=== PATIENT | female | born 1990 | race Caucasian/White ===

== ENCOUNTER 2022-12-21 08:11 | Emergency (ER) | payer OTHER ==
[~2022-12-21] VITALS: Ht 152.4 cm; Wt 65.3 kg
[2022-12-21 09:51] LABS: HEMATOCRIT 38.3 % (36.0-45.00); HEMOGLOBIN 13.1 g/dL (12.0-15.00); MEAN CELL VOLUME 86.7 fL (80.00-100.00); MEAN CORPUSCULAR HEMOGLOBIN 29.8 pg (27.00-32.0); MEAN CORPUSCULAR HGB CONC 34.3 g/dl (32.0-36.0); PLATELET COUNT 199 K/uL (150-450); RED BLOOD COUNT 4.42 M/uL (4.00-6.00); RED CELL DISTRIBUTION WIDTH 14.3 % (11.5-14.5)
== END 2022-12-21 10:43 | disposition home or self-care (01) ==
LOC: ER 08:12
PROVIDERS: General Practice
DX: J10.1 Influenza due to other identified influenza virus with other respiratory manifestations (principal); Z20.822 Contact with and (suspected) exposure to COVID-19

== ENCOUNTER 2024-01-05 17:07 | Emergency (ER) | payer OTHER ==
[~2024-01-05] VITALS: Ht 152.4 cm; Wt 68.0 kg
[2024-01-05] MEDS ORDERED: FOLIC ACID0.8 M1 (17:12)
[2024-01-05] MEDS ORDERED: GENTAMICIN SULFATE 0.15 MG/DR DROPS 5ML OP STA (17:24)
== END 2024-01-05 20:50 | disposition home or self-care (01) ==
LOC: ER 17:08
DX: R53.81 Other malaise (principal); J06.9 Acute upper respiratory infection, unspecified; Z20.822 Contact with and (suspected) exposure to COVID-19

== ENCOUNTER 2024-02-05 16:24 | Emergency (ER) | payer OTHER ==
[~2024-02-05] VITALS: Ht 152.4 cm; Wt 69.4 kg
[~2024-02-05 16:24] MED LIST: FOLIC ACID0.8 M1
[2024-02-05] MEDS ORDERED: PRENATE DHA SO1 EAC1 PO (17:07)
[2024-02-05 17:36] LABS: HEMOGLOBIN 12.5 g/dL (12.0-15.00); MEAN CELL VOLUME 86.5 fL (80.00-100.00); MEAN CORPUSCULAR HEMOGLOBIN 29.3 pg (27.00-32.0); MEAN CORPUSCULAR HGB CONC 33.9 g/dl (32.0-36.0); PLATELET COUNT 216 K/uL (150-450); RED BLOOD COUNT 4.27 M/uL (4.00-6.00); RED CELL DISTRIBUTION WIDTH 15.1 % (11.5-14.5)
[2024-02-05 18:07] LABS: INR 0.98; PARTIAL THROMBOPLASTIN TIME 26.7 SECONDS (22.0-34.0); PROTHROMBIN TIME 10.7 SECONDS (9.0-11.5)
[2024-02-05 18:42] LABS: CALCIUM 8.8 mg/dL (8.5-10.1); CREATININE SERUM 0.72 mg/dL (0.55-1.02); GFR 92.72; POTASSIUM 4.04 mEq/L (3.5-5.1)
[2024-02-05 18:46] LABS: PH,URINE 5.5 (5.0-8.0); URINE APPEARANCE Clear; URINE BILIRRUBIN Negative (NEGATIVE); URINE BLOOD Moderate; URINE COLOR Yellow; URINE GLUCOSE Negative (NEGATIVE); URINE KETONE Negative (NEGATIVE); URINE LEUKOCYTE Moderate; URINE NITRATE Negative; URINE PROTEIN Negative (NEGATIVE); URINE UROBILINOGEN 0.2 E.U./dl
[2024-02-05 18:50] LABS: URINE BACTERIA 1578.6 uL (0.0-1933); URINE EPITHELIAL CELLS 30.4 uL (0.0-38.8); URINE RBC 7.4 uL (0.0-20.8)
[2024-02-05 19:01] LABS: URINE CAST 0.15 uL (0.0-1.40)
[2024-02-06 09:10] LABS: HEMATOCRIT 38.1 % (36.0-45.00); HEMOGLOBIN 12.8 g/dL (12.0-15.00); MEAN CELL VOLUME 86.9 fL (80.00-100.00); MEAN CORPUSCULAR HEMOGLOBIN 29.3 pg (27.00-32.0); MEAN CORPUSCULAR HGB CONC 33.7 g/dl (32.0-36.0); PLATELET COUNT 207 K/uL (150-450); RED BLOOD COUNT 4.38 M/uL (4.00-6.00); RED CELL DISTRIBUTION WIDTH 14.7 % (11.5-14.5)
== END 2024-02-06 10:02 | disposition home or self-care (01) ==
LOC: ER 16:26
PROVIDERS: General Practice
DX: O20.8 Other hemorrhage in early pregnancy (principal); Z3A.10 10 weeks gestation of pregnancy; Z91.040 Latex allergy status

== ENCOUNTER 2024-02-16 08:10 | Outpatient (CLI) | payer OTHER ==
[~2024-02-16 08:10] MED LIST changes: +PRENATE DHA SO1 EAC1 PO
== END 2024-02-16 08:11 | disposition home or self-care (01) ==
LOC: PRENATAL 08:10
PROVIDERS: ATTEND Obstetrics & Gynecology Maternal & Fetal Medicine
DX: O36.80X0 Pregnancy with inconclusive fetal viability, not applicable or unspecified (principal); Z36.82 Encounter for antenatal screening for nuchal translucency; Z14.8 Genetic carrier of other disease; O24.419 Gestational diabetes mellitus in pregnancy, unspecified control; Z3A.12 12 weeks gestation of pregnancy

== ENCOUNTER 2024-04-12 10:49 | Outpatient (CLI) | payer OTHER | END 2024-04-12 10:50 | disposition home or self-care (01) | LOC: PRENATAL 10:49 | PROVIDERS: ATTEND Obstetrics & Gynecology Maternal & Fetal Medicine | DX: O44.00 Complete placenta previa NOS or without hemorrhage, unspecified trimester (principal); O24.419 Gestational diabetes mellitus in pregnancy, unspecified control; O26.879 Cervical shortening, unspecified trimester; Z3A.21 21 weeks gestation of pregnancy ==

== ENCOUNTER 2024-04-26 08:17 | Outpatient (CLI) | payer OTHER | END 2024-04-26 08:18 | disposition home or self-care (01) | LOC: PRENATAL 08:17 | PROVIDERS: ATTEND Obstetrics & Gynecology Maternal & Fetal Medicine | DX: O26.879 Cervical shortening, unspecified trimester (principal); O09.219 Supervision of pregnancy with history of pre-term labor, unspecified trimester; Z3A.22 22 weeks gestation of pregnancy ==

== ENCOUNTER 2024-04-26 10:23 | Outpatient (CLI) | payer OTHER | END 2024-04-26 10:27 | disposition home or self-care (01) | LOC: LAB 10:23 | PROVIDERS: ATTEND Obstetrics & Gynecology Maternal & Fetal Medicine | DX: O26.879 Cervical shortening, unspecified trimester (principal); O09.219 Supervision of pregnancy with history of pre-term labor, unspecified trimester ==

== ENCOUNTER → 2024-05-10 13:19 | Outpatient (CLI) | payer OTHER ==
[~2024-05-10 13:19] MED LIST changes: +ZITHROMAX500 MG PO
== END | disposition home or self-care (01) ==
LOC: PRENATAL 13:19
PROVIDERS: ATTEND Obstetrics & Gynecology Maternal & Fetal Medicine
DX: O26.849 Uterine size-date discrepancy, unspecified trimester (principal); O36.8199 Decreased fetal movements, unspecified trimester, other fetus; O26.879 Cervical shortening, unspecified trimester; O24.419 Gestational diabetes mellitus in pregnancy, unspecified control; Z3A.25 25 weeks gestation of pregnancy

== ENCOUNTER 2024-05-10 15:11 | Outpatient (CLI) | payer OTHER | END 2024-05-10 15:13 | disposition home or self-care (01) | LOC: LAB 15:11 | PROVIDERS: ATTEND Obstetrics & Gynecology Maternal & Fetal Medicine | DX: O26.879 Cervical shortening, unspecified trimester (principal); O09.219 Supervision of pregnancy with history of pre-term labor, unspecified trimester ==

== ENCOUNTER 2024-06-05 10:23 | Outpatient (CLI) | payer OTHER ==
[~2024-06-05 10:23] MED LIST changes: +AZITHROMYCIN250 MG PO
== END 2024-06-05 10:27 | disposition home or self-care (01) ==
LOC: PRENATAL 10:23
PROVIDERS: ATTEND Obstetrics & Gynecology Maternal & Fetal Medicine
DX: O26.849 Uterine size-date discrepancy, unspecified trimester (principal); O36.8199 Decreased fetal movements, unspecified trimester, other fetus; O26.879 Cervical shortening, unspecified trimester; O24.419 Gestational diabetes mellitus in pregnancy, unspecified control; Z3A.29 29 weeks gestation of pregnancy

== ENCOUNTER 2024-07-04 10:09 | Outpatient (CLI) | payer OTHER ==
[~2024-07-04 10:09] MED LIST changes: +HUMULIN N100 UNIT/2 SUBCUTANEO; +INSULIN SYRING1 EA29 SUBCUTANEO
== END 2024-07-04 10:10 | disposition home or self-care (01) ==
LOC: PRENATAL 10:09
PROVIDERS: ATTEND Obstetrics & Gynecology Maternal & Fetal Medicine
DX: O26.849 Uterine size-date discrepancy, unspecified trimester (principal); O36.8199 Decreased fetal movements, unspecified trimester, other fetus; O26.879 Cervical shortening, unspecified trimester; O24.419 Gestational diabetes mellitus in pregnancy, unspecified control; Z3A.32 32 weeks gestation of pregnancy

== ENCOUNTER 2024-08-03 09:23 | Inpatient (IN) | payer OTHER ==
[2024-08-03] VITALS (7 sets, daily range): BP systolic 100–117; BP diastolic 49–74
[~2024-08-03] VITALS: Ht 152.4 cm; Wt 87.1 kg
[2024-08-03 11:54] LABS: BASO % 0.3 % (0.1-1.2); EOS # 0.06 (0.04-0.54); EOS % 0.7 % (0.7-7.0); HEMATOCRIT 38.1 % (34.1-44.9); HEMOGLOBIN 12.5 g/dL (11.2-15.7); LYMPH # 1.83 (1.18-3.74); LYMPH % 20.5 % (19.3-53.1); MEAN CORPUSCULAR HEMOGLOBIN 27.5 pg (25.6-32.2); MONO # 0.51 (0.24-0.82); MONO % 5.7 % (4.7-12.5); NEUT # 6.43 (1.56-6.13); NEUT % 72.1 % (34.0-71.1); PLATELET COUNT 207 K/uL (163-369); RED BLOOD COUNT 4.55 M/uL (3.93-5.22); RED CELL DISTRIBUTION WIDTH 15.9 % (11.6-14.4)
[2024-08-03 11:56] LABS: PH,URINE 5.5 (5.0-8.0); URINE APPEARANCE Turbid; URINE BILIRRUBIN Negative (NEGATIVE); URINE BLOOD Large; URINE COLOR Dark Yellow; URINE GLUCOSE Negative (NEGATIVE); URINE KETONE 15 (NEGATIVE); URINE LEUKOCYTE Large; URINE NITRATE Negative; URINE PROTEIN 30 (NEGATIVE); URINE UROBILINOGEN 0.2 E.U./dl
[2024-08-03 12:00] LABS: URINE CAST 4.56 uL (0.0-1.40); URINE EPITHELIAL CELLS 193.4 uL (0.0-38.8); URINE RBC 21.6 uL (0.0-20.8); URINE WBC 1564.6 uL (0.0-23.2)
[2024-08-03 12:22] LABS: INR 0.97; PARTIAL THROMBOPLASTIN TIME 27.6 SECONDS (22.0-34.0); PROTHROMBIN TIME 10.6 SECONDS (9.0-11.5)
[2024-08-03] MEDS ORDERED: OXYTOCIN 20 UNITS/500ML RL PIGGYBAG IV ONE (12:24)
[2024-08-03 12:25] LABS: URINE BACTERIA > 9821.5 uL (0.0-1933)
[2024-08-03 12:28] LABS: ALBUMIN 2.9 gm/dL (3.4-5.0); BILIRUBIN TOTAL 0.39 mg/dL (0.3-1.2); CALCIUM 8.9 mg/dL (8.5-10.1); CREATININE SERUM 0.51 mg/dL (0.55-1.02); GFR 138.04; GLOBULINA 3.7 G/DL (2.4-3.5); POTASSIUM 4.34 mEq/L (3.5-5.1); TOTAL PROTEIN 6.6 gm/dL (6.4-8.2)
[2024-08-03] MEDS ORDERED: ERYTHROMYCIN BASE OPHT 1GM EACH TUBE OP ONE ×2 (12:51→14:00)
[2024-08-03] MEDS ORDERED: OXYTOCIN 20 UNITS/1000ML RL PIGGYBAG IV ONE (12:51)
[2024-08-03] MEDS ORDERED: CHLORHEXIDINE GLUCONATE 120 ML BOTTLE TOP ONE ×2 (12:51→13:45)
[2024-08-03] MEDS ORDERED: LIDOCAINE HCL 1% 10ML VIAL ONE (12:52)
[2024-08-03] MEDS ORDERED: OXYTOCIN 500 ML IV SCH (13:15)
[2024-08-03] MEDS ORDERED: CEFAZOLIN SODIUM 1,000 MG VIAL IV SCH (13:45)
[2024-08-03] MEDS ORDERED: ACETAMINOPHEN 500 MG GEL..CAP PO PRN (13:45)
[2024-08-03] MEDS ORDERED: IBUprofen 800 MG TABLET PO PRN (13:45)
[2024-08-03] MEDS ORDERED: LIDOCAINE HCL 1% 2ML VIAL IJ ONE (14:00)
[2024-08-03] MEDS ORDERED: BENZOCAINE/MENTHOL 90 ML BOTTLE TOP SCH (17:00)
[2024-08-03] MEDS ORDERED: HYDROCORTISONE 2.5% 30 GM TUBE RECTAL SCH (17:00)
[2024-08-04 02:13] VITALS: BP 100/64
[2024-08-04 02:27] LABS: BASO % 0.2 % (0.1-1.2); EOS % 0.8 % (0.7-7.0); HEMATOCRIT 35.5 % (34.1-44.9); HEMOGLOBIN 11.7 g/dL (11.2-15.7); LYMPH # 2.44 (1.18-3.74); LYMPH % 19.9 % (19.3-53.1); MEAN CORPUSCULAR HEMOGLOBIN 27.5 pg (25.6-32.2); MONO # 0.85 (0.24-0.82); MONO % 6.9 % (4.7-12.5); NEUT # 8.81 (1.56-6.13); NEUT % 71.7 % (34.0-71.1); PLATELET COUNT 212 K/uL (163-369); RED BLOOD COUNT 4.25 M/uL (3.93-5.22); RED CELL DISTRIBUTION WIDTH 15.7 % (11.6-14.4)
[2024-08-04 08:00] VITALS: BP 99/54
[2024-08-04 16:30] VITALS: BP 111/68
[2024-08-04 23:54] VITALS: BP 112/72
[2024-08-05 01:53] LABS: BASO % 0.4 % (0.1-1.2); EOS # 0.15 (0.04-0.54); EOS % 1.6 % (0.7-7.0); HEMATOCRIT 35.3 % (34.1-44.9); HEMOGLOBIN 11.7 g/dL (11.2-15.7); LYMPH # 2.23 (1.18-3.74); LYMPH % 23.6 % (19.3-53.1); MEAN CORPUSCULAR HEMOGLOBIN 27.6 pg (25.6-32.2); MONO # 0.54 (0.24-0.82); MONO % 5.7 % (4.7-12.5); NEUT # 6.43 (1.56-6.13); NEUT % 68.2 % (34.0-71.1); PLATELET COUNT 236 K/uL (163-369); RED BLOOD COUNT 4.24 M/uL (3.93-5.22); RED CELL DISTRIBUTION WIDTH 15.8 % (11.6-14.4)
[2024-08-05 08:16] VITALS: BP 103/62
== END 2024-08-05 13:39 | disposition home or self-care (01) | DRG 796 ==
LOC: LDR 09:23 → OB/GYN 09:23
PROVIDERS: ADMIT Specialist; ATTEND Specialist
PROC: 10E0XZZ Delivery of Products of Conception, External Approach (ICD-10-PCS; principal; 2024-08-03)
PROC: 0HQ9XZZ Repair Perineum Skin, External Approach (ICD-10-PCS; 2024-08-03)
PROC: 4A1HXCZ Monitoring of Products of Conception, Cardiac Rate, External Approach (ICD-10-PCS; 2024-08-03)
PROC: 0UB70ZZ Excision of Bilateral Fallopian Tubes, Open Approach (ICD-10-PCS; 2024-08-04)
DX: O70.0 First degree perineal laceration during delivery (principal); O60.14X0 Preterm labor third trimester with preterm delivery third trimester, not applicable or unspecified; Z37.0 Single live birth; Z30.2 Encounter for sterilization; Z3A.36 36 weeks gestation of pregnancy

== ENCOUNTER 2024-09-26 11:07 | Emergency (ER) | payer OTHER ==
[~2024-09-26] VITALS: Ht 152.4 cm; Wt 72.6 kg
[2024-09-26 11:32] VITALS: BP 103/70; O2SAT 99
[2024-09-26 12:39] LABS: BASO % 0.6 % (0.1-1.2); EOS # 0.08 (0.04-0.54); EOS % 1.2 % (0.7-7.0); LYMPH # 1.04 (1.18-3.74); LYMPH % 15.3 % (19.3-53.1); MEAN PLATELET VOLUME 11.50 fl (9.4-12.4); MONO # 0.88 (0.24-0.82); NEUT # 4.76 (1.56-6.13); NEUT % 69.9 % (34.0-71.1); RED CELL DISTRIBUTION WIDTH 15.1 % (11.6-14.4)
[2024-09-26 13:07] LABS: COVID-19 AG POSITIVE (NEGATIVE)
[2024-09-26 14:15] LABS: MONO % 12.9 % (4.7-12.5)
[2024-09-26] MEDS ORDERED: ACETAMINOPHEN500 M1 PO (15:15)
[2024-09-26] MEDS ORDERED: PAXLOVID 300-11 EAC1 PO (15:15)
[2024-09-26] MEDS ORDERED: GILTUSS COUGH-118 M1 PO (15:15)
[2024-09-26] MEDS ORDERED: GILTUSS HONEY118 ML PO (15:25)
== END 2024-09-26 16:21 | disposition home or self-care (01) ==
LOC: ER 11:07
PROVIDERS: Preventive Medicine Public Health & General Preventive Medicine
DX: U07.1 COVID-19 (principal); Z91.018 Allergy to other foods; Z91.040 Latex allergy status